=== PATIENT | male | born 1975 | race Caucasian/White ===

== ENCOUNTER 2023-12-28 08:34 | Day surgery (SDC) | payer OTHER ==
[2023-12-28] VITALS (15 sets, daily range): BP systolic 130–201; BP diastolic 83–110
[~2023-12-28] VITALS: Ht 185.4 cm; Wt 111.7 kg
[~2023-12-28 08:34] MED LIST: CYAN100 PO; CYCL10 PO; HYDACE5 PO; HYDCHL12.5 PO; Lactated Ringer's 1,000 ML IV SCH; RXCYCL10 PO; RXHYDACE PO; SERT25 PO
--- NOTE | 2023-12-28 09:18 | NUR ---
Ambulatory in Day Surgery Patient confirms NPO status and agrees with scheduled surgery. Pre-Op teaching done. Pt verbalizes understanding. History, Chart, Medications and Allergies reviewed before start of procedure.Patient States Post-Procedure ride home has been arranged.
[2023-12-28] MEDS ORDERED: propofoL 40 ML IV ONE (09:29)
--- NOTE | 2023-12-28 09:39 | NUR ---
12/28/23 0939 Loreto Lanier HISTORY, CHART, MEDICATIONS AND ALLERGIES REVIEWED BEFORE START OF PROCEDURE. PATIENT CONFIRMS NPO STATUS AND AGREES WITH SCHEDULED PROCEDURE. 3-LEAD EKG REVIEWED WITH PHYSICIAN PRIOR TO START OF PROCEDURE. MONITOR INTACT WITH CONTINUOUS PULSE OXIMETRY,CAPNOGRAPHY, 3-LEAD EKG, INTERMITTENT BP. SUPPLEMENTAL O2 TO BE TITRATED THROUGHOUT PROCEDURE TO MAINTAIN O2 SATURATION ABOVE 90%. PATIENT DETERMINED TO BE ASA APPROPRIATE FOR PROPOFOL SEDATION PRIOR TO START OF PROCEDURE BY DR. HAMILTON. MALLAMPATI CLASS 2 AIRWAY: COMPLETE VISUALIZATION OF THE UVULA.
--- NOTE | 2023-12-28 10:29 | NUR ---
PT TOLERATING PO FLUIDS AND FOOD, ABLE TO REPOSITION SELF IN BED, REPORTS NO NAUSEA.
--- NOTE | 2023-12-28 10:40 | NUR ---
Patient up to Ambulate independently. Gait steady. Discharge instructions reviewed with patient. Patient verbalizes understanding. Copy given to patient to take home. Patient States Post-Procedure ride home has been arranged. Discharged via wheelchair to private car for ride home. ALL BELONGINGS RETURNED TO PATIENT.
== END 2023-12-28 10:42 | disposition home or self-care (01) ==
LOC: ORSCMMR 08:34 → ORD 09:30 → ORSCMMR 10:42
PROVIDERS: Internal Medicine Gastroenterology
PROC: 0DJD8ZZ Inspection of Lower Intestinal Tract, Via Natural or Artificial Opening Endoscopic (ICD-10-PCS; principal; 2023-12-28 09:30)
DX: Z12.11 Encounter for screening for malignant neoplasm of colon (principal); Z83.719 Family history of colon polyps, unspecified
CPT/HCPCS: J2704; J7120